=== PATIENT | female | born 1955 | race Asian ===

== ENCOUNTER 2019-04-05 10:08 | Outpatient (CLI) | payer MEDICARE, BC ==
--- NOTE | 2019-04-05 11:18 | MMO ---
Bilateral MAMMO Bilat Screen [facility]. CLINICAL HISTORY: Patient is 64 years old and is seen for screening. VIEWS: The views performed were: bilateral craniocaudal with tomosynthesis; bilateral mediolateral oblique with tomosynthesis; and left mediolateral oblique. MAMMOGRAM FINDINGS: There are scattered fibroglandular densities. There is an equal density, oval mass with circumscribed margins seen in the outer region of the left breast. In the right breast, there are no suspicious masses, calcifications or areas of architectural distortion. IMPRESSION: MASS IN THE LEFT BREAST REQUIRES ADDITIONAL EVALUATION. AN ULTRASOUND EXAM IS RECOMMENDED. THE RESULTS OF THIS EXAM WERE SENT TO THE PATIENT. ACR BI-RADS Category 0 - Incomplete: Need additional imaging evaluation. [facility] will notify the patient of the need for additional imaging services. MAMMOGRAPHY NOTE: 1. A negative mammogram report should not delay a biopsy if a dominant of clinically suspicious mass is present. 2. Approximately 10% to 15% of breast cancers are not detected by mammography. 3. Adenosis and dense breasts may obscure an underlying neoplasm.
== END 2019-04-05 10:09 | disposition home or self-care (01) ==
LOC: BICMAMMO 10:08
PROVIDERS: ATTEND Family Medicine
DX: Z12.31 Encounter for screening mammogram for malignant neoplasm of breast (principal); N63.20 Unspecified lump in the left breast, unspecified quadrant
CPT/HCPCS: 77063; 77067

== ENCOUNTER 2019-04-17 10:40 | Outpatient (CLI) | payer MEDICARE, BC ==
--- NOTE | 2019-04-17 12:20 | ULT ---
LEFT BREAST ULTRASOUND: Date: 04/17/19 HISTORY: Abnormal mammogram. FINDINGS: Comparison made with mammogram dated 04/05/19. The mass in the left upper outer deep breast/axilla on the mammogram corresponds to a 1.4 x 0.5 x 0.7 cm hypoechoic nonshadowing mass with echogenic hilum and flow, consistent with lymph node at the 1 o 'clock position. IMPRESSION: BI-RADS Category 2 - Benign findings. Return to annual mammographic screening. POS: OFF
== END 2019-04-17 10:41 | disposition home or self-care (01) ==
LOC: BICULT 10:40
PROVIDERS: ATTEND Family Medicine
DX: N63.21 Unspecified lump in the left breast, upper outer quadrant (principal)

== ENCOUNTER 2021-04-24 10:07 | Outpatient (CLI) | payer MEDICARE, BC | END 2021-04-24 10:08 | disposition home or self-care (01) | LOC: BICMAMMO 10:07 | PROVIDERS: ATTEND Physician Assistant | DX: Z12.31 Encounter for screening mammogram for malignant neoplasm of breast (principal) | CPT/HCPCS: 77063; 77067 ==

== ENCOUNTER 2023-04-29 10:12 | Outpatient (CLI) | payer MEDICARE, BC, OTHER ==
[~2023-04-29 10:12] MED LIST: Iopamidol 370 76% 100 ML VIAL ONE
== END 2023-04-29 10:13 | disposition home or self-care (01) ==
LOC: CT 10:12
PROVIDERS: ATTEND Family Medicine
DX: R19.02 Left upper quadrant abdominal swelling, mass and lump (principal)
CPT/HCPCS: 74178; Q9967